=== PATIENT | male | born 1980 | race Caucasian/White ===

== ENCOUNTER 2019-12-15 05:53 | Emergency (ER) | payer OTHER ==
[2019-12-15] MEDS ORDERED: SODIUM BICARBONATE 4.2% 5 MEQ/10 ML DISP.SYRIN IVPUSH ONE (05:59)
[2019-12-15] MEDS ORDERED: BENZOCAINE/MENTH/CETYLPYRD CL 1 EACH LOZENGE MM PRN (06:29)
[2019-12-15 06:35] VITALS: BP 0/0; PULSE 0; BMI 26.9
[2019-12-15] MEDS ORDERED: NALOXONE HCL 0.4 MG/ML VIAL ONE (06:37)
[2019-12-15] MEDS ORDERED: AMIODARONE HCL 150 MG/3 ML VIAL ONE (06:37)
[2019-12-15] MEDS ORDERED: SODIUM BICARBONATE 2.4 MEQ/5 ML SDVIAL ONE (06:37)
[2019-12-15] MEDS ORDERED: CALCIUM CHLORIDE 1 GM/10 ML *DISP.SYRIN ONE (06:38)
[2019-12-15] MEDS ORDERED: EPINEPHrine 1:10,000 (P-F SYR) 1 MG/10 ML DISP.SYRIN ONE (06:38)
--- NOTE | 2019-12-15 07:10 | PDOC ---
Documentation entered by Tim Jacobsen SCRIBE, acting as scribe for Светлана Emmanuel DO. Светлана Emmanuel DO: This documentation has been prepared by the brody, Tim Jacobsen SCRIBE, under my direction and personally reviewed by me in its entirety. I confirm that the documentation accurately reflects all work, treatment, procedures, and medical decision making performed by me. History of Present Illness - General Chief Complaint: Cardiac Arrest Stated Complaint: CARDIAC ARREST History Source: EMS, Family Exam Limitations: Intubated, Unresponsive - History of Present Illness Initial Comments: 12/15/19 06:54 The patient is a 39 year old male, with a significant past medical history of anxiety, who presents to the emergency department via EMS unresponsive. As per and EMS at bedside, she was leaving for work at which time she heard a thump thus, she went to the bedroom and found him on the floor gasping for air , prompting her call for EMS. Per EMS en route, Patient was coded for 1 hr in the field. Intubated in the field. Aevry in place Shocked x5 200J Blood Glucose Level: 170 Given: Calcium Bicarb Narcan Epinephrine x5 Amiodarone and 150 of Amiodarone hung While in the ED, Arrived to ED at 5:55AM 5:58AM Epinephrine given 5:59AM Pulse check, none palpable, compressions resumed 6:00AM Shocked 200J, no pulse, compressions resumed 5:59AM Bicarb given 6:04AM Magnesium given Shocked 200J Pulse check, none palpable, compressions resumed 6:06AM Calcium given Shocked 200J Pulse check, none palpable, compressions resumed 6:07AM Bedside ultrasound performed, no cardiac activity Pulse check, none palpable, compressions resumed 6:09AM Epinephrine given Pulse check, none palpable, compressions resumed 6:11AM Bicarb given Pulse check, none palpable, compressions resumed 6:12AM Bedside ultrasound performed, no cardiac activity 6:15AM Epi given Bedside ultrasound performed, no cardiac activity 6:16:07AM Shocked 200J 6:16:10AM Shocked 200J 6:17AM Bedside ultrasound performed, no cardiac activity Time of : 6:17AM denies any usage of drugs. Patient has a prescription for Klonopin (4 tablets/mo) that he uses on an as needed basis but has discontinued usage. [facility] Allergies: NKDA Past History - Travel Traveled outside of the country in the last 30 days: No - Past Medical History Allergies/Adverse Reactions: Allergies Allergy/AdvReac Type Severity Reaction Status Date / Time No Known Allergies Allergy Verified 12/15/19 06:20 Home Medications: Ambulatory Orders Cephalexin Monohydrate [Keflex] 500 mg PO Q8H #30 capsule 11/13/12 - Psycho Social/Smoking Cessation Hx Smoking Status: No Smoking History: Current every day smoker Number of Cigarettes Smoked Daily: 20 Review of Systems - Review of Systems Able to Perform ROS?: No Comments:: 12/15/19 06:55 Unable to perform secondary to patient's clinical condition. *Physical Exam - Physical Exam 12/15/19 07:03 GENERAL: Unresponsive HEAD: No signs of trauma EYES: Pupils fixed and dilated. LUNGS: No spontaneous respirations, bagged respirations. ET tube in place. HEART: No cardiac activity EXTREMITIES: Cyanotic. NEUROLOGICAL: Unresponsive. SKIN:Cyanotic. 12/17/19 17:10 Medical Decision Making - Critical Care Time Total Critical Care Time (minutes): 60 Critical Care Statement: The care of this patient involved high complexity decision making to prevent further life threatening deterioration of the patient 's condition and/or to evaluate & treat vital organ system(s) failure or risk of failure. - Medical Decision Making 12/17/19 17:12 39-year-old male arrives unresponsive with approximately 50 minutes of downtime prior to arrival Patient found to be in V. fib, refractory Patient intubated on scene by paramedics ACLS protocol initiated in the field This was continued in the emergency department, after greater than 1 hour of downtime bedside ultrasound confirmed no cardiac activity Patient was pronounced at 6:14 AM. [facility] contacted, they have accepted the case 12/17/19 17:15 Discharge - Discharge Information Problems reviewed: Yes Clinical Impression/Diagnosis: Cardiac arrest Disposition: - Follow up/Referral - Patient Discharge Instructions - Post Discharge Activity
== END 2019-12-15 08:30 | disposition expired ==
LOC: JER 05:53
PROC: 5A12012 Performance of Cardiac Output, Single, Manual (ICD-10-PCS; principal; 2019-12-15)
PROC: B246ZZZ Ultrasonography of Right and Left Heart (ICD-10-PCS; 2019-12-15)
DX: I46.9 Cardiac arrest, cause unspecified (principal); F41.9 Anxiety disorder, unspecified; F17.210 Nicotine dependence, cigarettes, uncomplicated
CPT/HCPCS: 99285-25